=== PATIENT | female | born 1950 | race Caucasian/White ===

== ENCOUNTER → 2016-06-08 | Day surgery (SDC) | payer MEDICARE, BC ==
[~2016-06-08] MED LIST: FENTANYL 100 MCG/2 ML VIAL IV PRN; HYDROmorphone 1 MG INJECTION IV PRN; LABETALOL 20 MG/4 ML SYRINGE IV PRN; MEPERIDINE 25 MG/ML TUBEX IV PRN; ONDANSETRON HCL 4 MG ODT TAB PO PRN; ONDANSETRON HCL 4 MG/2 ML VIAL IV PRN; PROPOFOL 200 MG/20 ML VIAL IV ONE; hydrALAZINE 20 MG/ML VIAL IV PRN
[2016-06-08 09:08] LABS: MPV 10.1 fL (7.4-10.4)
--- NOTE | 2016-06-08 09:12 | HIM.ANES ---
Anesthesia Evaluation & Plan - Focused Review of Systems Cardiac History: Yes: Hx Afib/Aflutter, Hx Cardiac Disorders, Hx Congestive Heart Failure (04/2016) HEENT: Yes: Cataract Removal, Other HEENT Problems Hx Other HEENT Surgery: TONSILECTOMY 1973 Hx Other HEENT Problems: SEASONAL ALLERGIES Gastrointestinal: Yes: Hx Gastroesophageal Reflux Disease, Hx Gastrointestinal Disorders, Hx Colonoscopy (2014, 2015 POLYPECTOMY) Neurological/Musculoskeletal: No: Hx Neurological Disorders Psychological: No Hx Mental/Emotional Disorders Blood/Autoimmune: No: Hx AIDS, Hx Hepatitis (type) Smoking Status: Never smoker Surgical History: Yes: Cholecystectomy, Bladder Tact () Other Surgical History: TONSILECTOMY 1973 - Focused Physical Exam NPO since: after Midnight Mallampati: Class II Thyromental Distance: Greater than 3 Neck: Full Range of Motion Cardiovascular/Chest: Normal (RRR no mumurs or rubs.) Respiratory: Lungs clear. negative: Rhonchi, Wheezing Any problems with anesthesia, including nausea and vomiting?: No (HYPOTENSION) Any relatives with a history of Malignant Hyperthermia?: No Does the patient have a history of Motion Sickness-: No Other: Allergies Allergy/AdvReac Type Severity Reaction Status Date / Time NSAIDS (Non-Steroidal Allergy acid reflux Verified 06/02/16 15:53 Anti-Inflamma Penicillins Allergy Anaphylaxis Verified 06/02/16 15:53 * Home Medications Medication Instructions Recorded Last Taken Type Allopurinol 100 mg PO DAILY 06/02/16 Unknown History Apixaban [Eliquis] 5 mg PO BID 06/02/16 Unknown History Biotin 1 mg PO DAILY 06/02/16 Unknown History Calcium Carbonate/Vitamin D3 1 each PO DAILY 06/02/16 Unknown History [Calcium 500 + Vit D 200 Tablet] Carboxymethylcellulose Ophth 0.4 ml BOTH EYES TID PRN 06/02/16 Unknown History [Celluvisc Ophthalmic Lubricant] Cetirizine HCl [Zyrtec] 10 mg PO DAILY PRN 06/02/16 Unknown History Chlorthalidone [Hygroton] 25 mg PO .SUN,TU,06/02/16 Unknown History Digoxin [Lanoxin, Digitek] 0.125 mg PO DAILY 06/02/16 Unknown History Eszopiclone [Lunesta] 3 mg PO HS 06/02/16 Unknown History Furosemide [Lasix] 20 mg PO DAILY 06/02/16 Unknown History Lisinopril 2.5 mg PO DAILY 06/02/16 Unknown History Magnesium [Magnesium Oxide] 133 mg PO DAILY 06/02/16 1 Week Ago History Metoprolol Tartrate [Lopressor] 100 mg PO DAILY 06/02/16 Unknown History Multivitamin [Multi-Day Vitamins] 1 each PO DAILY 06/02/16 Unknown History [place]-3 Fatty Acids/Fish Oil [Fish 2 each PO DAILY 06/02/16 Unknown History Oil 1,000 mg Capsule] Potassium Chloride [Klor-Con 10 meq PO DAILY 06/02/16 Unknown History Sprinkle] Sodium Chloride [[place] Saline] 50 ml NS DAILY PRN 06/02/16 Unknown History Height and Weight Patient's height 5 ft 1 in Patient's weight 83.007 kg - Anesthetic Plan Anesthesia Type: General ASA Class: 3 -: I have examined this patient and reviewed the medical record. The patient has been assessed prior to anesthesia. Risks and benefits of anesthesia and anesthetic technique options have been discussed and all questions answered. The patient accepts the risk and desires me to proceed with the planned anesthetic.
[2016-06-08 09:17] LABS: BLOOD UREA NITROGEN 13 MG/DL (7-17); CALCIUM 9.1 MG/DL (8.4-10.2); CALCULATED OSMOLALITY 271 MOs/Kg (270-290); CHLORIDE 103 mEq/L (98-107); GLUCOSE 107 MG/DL (70-99); SODIUM LEVEL 141 mEq/L (137-146)
--- NOTE | 2016-06-08 09:20 | DIRPT ---
CLINICAL DATA: Atrial fibrillation. Preop for cardioversion today. EXAM: CHEST 2 VIEW COMPARISON: 06/19/2011 FINDINGS: The heart size and mediastinal contours are within normal limits. Both lungs are clear. The visualized skeletal structures are unremarkable. IMPRESSION: Normal exam. Electronically Signed By: Ryan Lundberg M.D. On: 06/08/2016 09:18
--- NOTE | 2016-06-08 11:34 | HIMOPRPT ---
DATE OF PROCEDURE: 06/08/16 PREOPERATIVE DIAGNOSIS: atrial fibrillation POSTOPERATIVE DIAGNOSIS: same PROCEDURE: synchronous cardioversion SURGEON: Avery Kline MD ANESTHESIOLOGIST: DELORES staff ANESTHESIA: GA ESTIMATED BLOOD LOSS: NA COMPLICATIONS: none DRAINS: NA SPECIMENS: NA FINDING: successful cardioversion, initially 200 finney secs with SRTH and quickly reverted to AF, repeat with 200 finney secs and maintained SRTH INDICATIONS FOR PROCEDURE: atrial fibrillation DESCRIPTION OF PROCEDURE: synchronous cardioversion, twice at 200 watt secs
[2016-06-08 12:49] VITALS: PULSE 83
[2016-06-08 12:53] VITALS: TEMP 97.6
--- NOTE | 2016-06-08 12:57 | SC.ANESPOS ---
Post-Anesthesia Note LOC: Fully Awake Post-Anesthesia Assessment: Awake, Returned to Baseline, Hemodynamically Stable , Pain Control Adequate Phase I & II Recovery Complete: Yes Apparent Anesthesia Complication: No : N PACU Discharge Time: 12:18 - Vital Signs Blood Pressure: 123/62 Pulse: 83 Resp Rate: 16 O2 Sat: 97 Temp: 97.6 F - Comments Anesthesia Discharge Time Report Time 12:18
[2016-06-08 13:21] VITALS: BP 141/68
--- NOTE | 2016-06-08 15:50 | CAPUEKG ---
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
--- NOTE | 2016-06-08 15:50 | CAPUEKG ---
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
== END ==
LOC: SDC 08:31
PROVIDERS: ATTEND Internal Medicine Cardiovascular Disease
PROC: 5A2204Z Restoration of Cardiac Rhythm, Single (ICD-10-PCS; principal; 2016-06-08 09:45)
DX: I48.1 Persistent atrial fibrillation (principal); I10 Essential (primary) hypertension; I50.9 Heart failure, unspecified; K21.9 Gastro-esophageal reflux disease without esophagitis; Z79.899 Other long term (current) drug therapy
CPT/HCPCS: 71020; 80048; 83735; 85027; 92960; 93005; J3490